=== PATIENT | female | born 2000 | race Caucasian/White ===

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

== ENCOUNTER → 2024-08-27 | Outpatient (REF) | payer OTHER ==
[~2024-08-27] MED LIST changes: +ACET-683 PO; +COLA100C5 PO; +FLUO40CA PO; +IBUP-1022 PO; +MACR100C43 PO; +ONDA-282 PO; +OSEL75CA PO; +PRENTAB9 PO; +REGL10TA6 PO
== END ==
LOC: M SFHCWAGY 17:07
PROVIDERS: ATTEND Obstetrics & Gynecology
DX: Z36.85 Encounter for antenatal screening for Streptococcus B (principal); Z3A.36 36 weeks gestation of pregnancy

== ENCOUNTER 2024-09-06 21:14 | Outpatient (CLI) | payer OTHER ==
[~2024-09-06] VITALS: Ht 157.5 cm; Wt 77.9 kg
[~2024-09-06 21:14] MED LIST changes: -ACET-683 PO; -COLA100C5 PO; -IBUP-1022 PO
[2024-09-06] MEDS ORDERED: COLA100C5 PO (21:25)
[2024-09-06] MEDS ORDERED: HOME MED LIST COMPLETE! XX SCH (21:30)
[2024-09-06 21:43] VITALS: BP 119/75
[2024-09-08] MEDS ORDERED: ONDA-282 PO (10:33)
[2024-09-10] MEDS ORDERED: IBUP-1022 PO (10:58)
[2024-09-10] MEDS ORDERED: ACET-683 PO (10:58)
== END 2024-09-06 22:07 | disposition home or self-care (01) ==
LOC: M LDO 21:14
PROVIDERS: ATTEND Specialist
DX: O26.893 Other specified pregnancy related conditions, third trimester (principal); N89.8 Other specified noninflammatory disorders of vagina; Z3A.37 37 weeks gestation of pregnancy
CPT/HCPCS: 59025; G0463

== ENCOUNTER → 2025-01-30 | Outpatient (CLI) | payer OTHER ==
[~2025-01-30] MED LIST changes: +ACET-683 PO; +COLA100C5 PO; +IBUP-1022 PO
== END ==
LOC: M RAD 10:21
PROVIDERS: ATTEND Nurse Practitioner Family
DX: M25.551 Pain in right hip (principal); M25.552 Pain in left hip

== ENCOUNTER → 2025-02-26 | Outpatient (REF) | payer OTHER ==
[2025-02-26 16:01] LABS: APPEARANCE, URINE CLEAR (CLEAR); BACTERIA, URINE AUTO NEGATIVE (NEGATIVE); BILIRUBIN, URINE AUTO NEGATIVE (NEGATIVE); BLOOD, URINE BLOOD NEGATIVE (NEGATIVE); COLOR, URINE STRAW (YELLOW); GLUCOSE, URINE (UA) AUTO NEGATIVE (NEGATIVE); KETONE, URINE AUTO NEGATIVE (NEGATIVE); LEUKOCYTE ESTERASE, URINE AUTO NEGATIVE (NEGATIVE); NITRITE, URINE AUTO NEGATIVE (NEGATIVE); PROTEIN, URINE AUTO NEGATIVE (NEGATIVE); RBC, URINE AUTO 0 /HPF (0-3); SPECIFIC GRAVITY URINE AUTO 1.008 (1.002-1.035); SQUAMOUS EPITHELIAL CELL UR AU 0 /HPF (0-6); UROBILINOGEN, URINE AUTO 0.2 mg/dL (0.0-2.0); WBC, URINE AUTO 0 /HPF (0-3)
== END ==
LOC: M PLALAB 13:19
PROVIDERS: ATTEND Obstetrics & Gynecology
DX: Z01.419 Encounter for gynecological examination (general) (routine) without abnormal findings (principal); R31.0 Gross hematuria
CPT/HCPCS: 81001; 87086; G0123